=== PATIENT | male | born 1970 ===

== ENCOUNTER 2023-08-29 10:12 | Day surgery (SDC) | payer OTHER ==
[~2023-08-29 10:12] MED LIST: ALPRAZOLAM OD0.25 MG PO; ARICEPT5 MG PO; MONTELUKAST SOD10 MG PO; QUETIAPINE FUM100 MG PO; RESTORIL30 M1 PO; ZESTRIL10 M1 PO; ZOCOR20 MG PO; ZOLOFT100 MG PO
[2023-08-29] MEDS ORDERED: PERCOCET 5-3251 EACH PO (15:33)
== END 2023-08-29 17:35 | disposition home or self-care (01) ==
LOC: CIR.AMB 10:12
PROVIDERS: ATTEND Surgery
DX: D35.1 Benign neoplasm of parathyroid gland (principal); E21.0 Primary hyperparathyroidism; Z91.040 Latex allergy status; Z91.012 Allergy to eggs